=== PATIENT | male | born 1970 | race Caucasian/White ===

== ENCOUNTER 2018-08-25 10:20 | Inpatient (IN) | payer OTHER, BC ==
[~2018-08-25 10:20] MED LIST: ROCURONIUM 50 MG INJ; SUCCINYLCHOLINE CHLORIDE 100 MG/5 ML SYG IV
[2018-08-25] MEDS ORDERED: GELATIN SIZE 100 SPONGE ×2 (11:50→12:59)
[2018-08-25] MEDS: D5W-0.45 NACL + KCL 20 MEQ 1,000 ML IV ×2 (11:50→20:54)
[2018-08-25] MEDS ORDERED: NALOXONE (0.4 MG/ML) INJ IV (12:00)
[2018-08-25] MEDS ORDERED: HYDROmorphONE 0.5 MG/0.5 ML SYG IV (12:00)
[2018-08-25] MEDS ORDERED: BISACODYL 10 MG SUPP PR (12:00)
[2018-08-25] MEDS ORDERED: CARISOPRODOL 350 MG TAB PO (12:00)
[2018-08-25] MEDS ORDERED: DIPHENHYDRAMINE 50 MG INJ IV ×2 (12:00→16:30)
[2018-08-25] MEDS ORDERED: ONDANSETRON 4 MG INJ IV ×2 (12:00→16:30)
[2018-08-25] MEDS ORDERED: ACETAMINOPHEN 325 MG TAB PO (12:00)
[2018-08-25] MEDS ORDERED: DIPHENHYDRAMINE 25 MG CAP PO (12:00)
[2018-08-25] MEDS ORDERED: PROPOFOL 20 ML ×2 (12:25→13:17)
[2018-08-25] MEDS ORDERED: ROCURONIUM 50 MG INJ (12:25)
[2018-08-25] MEDS ORDERED: SUCCINYLCHOLINE CHLORIDE 100 MG/5 ML SYG IV (12:25)
[2018-08-25] MEDS ORDERED: MIDAZOLAM 1 MG/ML 2 ML INJ (12:25)
[2018-08-25] MEDS ORDERED: LIDOCAINE 2% (SDV) 5 ML INJ (12:25)
[2018-08-25] MEDS ORDERED: CEFAZOLIN 1 GM INJ (12:46)
[2018-08-25] MEDS: BUPIVACAINE 0.25%/EPI (SDV) 30 ML INJ (13:14)
[2018-08-25] MEDS ORDERED: FAMOTIDINE 20 MG INJ (13:17)
[2018-08-25] MEDS ORDERED: ONDANSETRON 4 MG INJ (13:17)
[2018-08-25] MEDS ORDERED: DEXAMETHASONE 4 MG/ML 1 ML INJ (13:17)
[2018-08-25] MEDS: SURGIFOAM POWDER 1 GM KIT (13:26)
[2018-08-25] MEDS: THROMBIN 5000 UNIT VIAL (13:26)
[2018-08-25] MEDS: POLYMYXIN/BACITRACIN 1L IRRIG (13:28)
[2018-08-25] MEDS ORDERED: HYDROmorphONE 2 MG/ML SYG (15:25)
[2018-08-25] MEDS ORDERED: GLYCOPYRROLATE 0.4 MG INJ (15:27)
[2018-08-25] MEDS ORDERED: NEOSTIGMINE 3 MG/3 ML SYRINGE (15:27)
[2018-08-25] MEDS: HYDROmorphONE 0.2 MG/ML PCA IV (15:57)
[2018-08-25] MEDS ORDERED: HYDROmorphONE 1 MG/5 ML IV SYRINGE IV ×3 (16:30)
[2018-08-25] MEDS ORDERED: MEPERIDINE 25 MG INJ IV (16:30)
[2018-08-25] MEDS ORDERED: OXYCODONE/ACETAMINOPHEN (5/325) TAB PO (16:30)
[2018-08-25] MEDS ORDERED: FENTAnyl 50 MCG/ML VIAL IV ×3 (16:30)
[2018-08-25] MEDS ORDERED: PROCHLORPERAZINE 10 MG INJ IV (16:30)
[2018-08-25] MEDS: THIAMINE 100 MG TAB PO (17:00)
[2018-08-25] MEDS: CEPASTAT LOZENGE MT ×2 (17:51→21:12)
[2018-08-25] MEDS: CEFAZOLIN 1 GM/50 ML (PMX) 50 ML IVPB (20:55)
[2018-08-25] MEDS: DOCUSATE SODIUM 100 MG CAP PO (20:55)
[2018-08-25] MEDS: SERTRALINE 100 MG TAB PO (21:52)
[2018-08-26] MEDS: CEPASTAT LOZENGE MT ×2 (00:29→05:21)
[2018-08-26 05:05] LABS: ADD MAN DIFF? NO
[2018-08-26] MEDS: CEFAZOLIN 1 GM/50 ML (PMX) 50 ML IVPB (05:08)
[2018-08-26] MEDS: PANTOPRAZOLE 40 MG INJ IV (05:09)
[2018-08-26 05:10] LABS: ABNORMAL IP MESSAGE 1; BASOPHILS % 0.1 % (0.0-2.0); HEMATOCRIT 35.8 % (42.0-52.0); HEMOGLOBIN 12.3 g/dl (14.0-18.0); LYMPHOCYTES # 0.9 10^3/ul (0.8-2.9); LYMPHOCYTES % 5.7 % (15.0-51.0); MEAN CORPUSCULAR HEMOGLOBIN 32.8 pg (29.0-33.0); MEAN CORPUSCULAR HGB CONC 34.4 g/dl (32.0-37.0); MEAN CORPUSCULAR VOLUME 95.5 fl (82.0-101.0); MEAN PLATELET VOLUME 10.4 fl (7.4-10.4); MONOCYTE # 1.6 10^3/ul (0.3-0.9); MONOCYTES % 9.6 % (0.0-11.0); NEUTROPHIL # 13.6 10^3/ul (1.6-7.5); NEUTROPHILS % 84.2 % (39.0-77.0); PLATELET COUNT 150 10^3/UL (140-415); POSITIVE DIFF @See below; RED BLOOD COUNT 3.75 10^6/ul (4.70-6.10); RED CELL DISTRIBUTION WIDTH 12.1 % (11.5-14.5)
[2018-08-26 05:10] LABS: WHITE BLOOD COUNT 16.1 10^3/ul (4.8-10.8)
[2018-08-26 05:39] LABS: ANION GAP 8 (5-13); BLOOD UREA NITROGEN 6 mg/dl (7-20); CALCIUM 9.2 mg/dl (8.4-10.2); CARBON DIOXIDE 28 mmol/L (21-31); CHLORIDE 103 mmol/L (97-110); CREATININE 0.73 mg/dl (0.61-1.24); Estimated GFR > 60 mL/min (>60); GLUCOSE 130 mg/dl (70-220); MAGNESIUM 1.8 mg/dl (1.7-2.5); SODIUM 139 mmol/L (135-144)
[2018-08-26 05:42] LABS: POTASSIUM 4.6 mmol/L (3.5-5.1)
[2018-08-26] MEDS: traMADol 50 MG TAB PO (08:44)
[2018-08-26] MEDS: DOCUSATE SODIUM 100 MG CAP PO (08:44)
[2018-08-26] MEDS: THIAMINE 100 MG TAB PO (08:44)
[2018-08-26] MEDS ORDERED: SERTRALINE 100 MG TAB PO (09:00)
[2018-08-26] MEDS ORDERED: traMADol 50 MG TAB PO ×2 (10:00)
== END 2018-08-26 09:56 | disposition home or self-care (01) | DRG 473 ==
LOC: REC 10:20 → MS1 17:45
PROVIDERS: Specialist
PROC: 0RG20A0 Fusion of 2 or more Cervical Vertebral Joints with Interbody Fusion Device, Anterior Approach, Anterior Column, Open Approach (ICD-10-PCS; principal; 2018-08-25 12:00)
PROC: 0RT30ZZ Resection of Cervical Vertebral Disc, Open Approach (ICD-10-PCS; 2018-08-25 12:00)
PROC: 4A11X4G Monitoring of Peripheral Nervous Electrical Activity, Intraoperative, External Approach (ICD-10-PCS; 2018-08-25 12:00)
DX: M50.122 Cervical disc disorder at C5-C6 level with radiculopathy (principal); M48.02 Spinal stenosis, cervical region; F41.1 Generalized anxiety disorder
CPT/HCPCS: 72052; 80048; 83735; 85025; 88304; 97161